=== PATIENT | female | born 1960 | race African-American/Black ===

== ENCOUNTER 2016-11-08 08:15 | Emergency (ER) | payer MEDICARE, MEDICAID ==
[~2016-11-08] VITALS: Ht 162.6 cm; Wt 95.0 kg
[~2016-11-08 08:15] MED LIST: HYDR-3513
[2016-11-08 08:28] VITALS: BP 177/90
[2016-11-08] MEDS ORDERED: DIPHENHYDRAMINE 50MG/ML VIAL IM ONE (10:45)
== END 2016-11-08 11:13 | disposition home or self-care (01) ==
LOC: ER 10:40
DX: R21 Rash and other nonspecific skin eruption (principal); L73.9 Follicular disorder, unspecified; Z88.0 Allergy status to penicillin; Z98.890 Other specified postprocedural states
CPT/HCPCS: 96372; 99283; J1200

== ENCOUNTER → 2020-11-24 | Day surgery (SDC) | payer MEDICARE ==
[~2020-11-24] VITALS: Ht 162.6 cm; Wt 86.2 kg
[~2020-11-24] MED LIST changes: +ACET-2708 PO; +ACET500C47 PO; +ALBU90AE IH; +BALANCED SALT IRRIG SOLN 15ML ONE; +BRIM10DR2 BOTHEYE; +BUPIVACAINE HCL/PF 0.75% (7.5MG/ML) 10ML ONE; +CIPROFLOXACIN 0.3% OPHTH SOLN 2.5ML ONE; +FENTANYL CITRATE/PF 50MCG/ML 2ML VIAL ONE; -HYDR-3513; +HYDR-4350 PO; +KETO5DRO80 BOTHEYE; +LACTATED RINGERS 1,000 ML IV SCH; +LATA2.5D14 BOTHEYE; +LIDOCAINE HCL 2%/EPINEPHRINE 1:100,000 20 ML VIAL INFIL ONE; +LIDOCAINE HCL/PF 1% 10 MG/ML 5ML VIAL ONE; +LIDOCAINE HCL/PF 2% 20 MG/ML 10ML VIAL ONE; +MIDAZOLAM HCL 2 MG/2 ML VIAL ONE; +NEO/POLYMYX B SULF/DEXAMETH OPHTH OINT 3.5GM ONE; +P20 PO; +PRED5DRO22 BOTHEYE; +PREDNISOLONE ACETATE 1% OPHTH DROPS 5ML ONE; +PROPOFOL 200MG/20ML VIAL IV ONE; +TETRACAINE 0.5% OPHTH DROPS 4ML ONE; +XALAO EACHEYE
== END | disposition home or self-care (01) ==
LOC: OR 05:08
PROVIDERS: ATTEND Ophthalmology
DX: T85.398A Other mechanical complication of other ocular prosthetic devices, implants and grafts, initial encounter (principal); E66.9 Obesity, unspecified; J44.9 Chronic obstructive pulmonary disease, unspecified; Z79.899 Other long term (current) drug therapy; Z88.0 Allergy status to penicillin; Z98.890 Other specified postprocedural states; X58.XXXA Exposure to other specified factors, initial encounter; Y93.89 Activity, other specified; Y92.89 Other specified places as the place of occurrence of the external cause; Y99.8 Other external cause status
CPT/HCPCS: 66185; 93005; J2250; J2704; J3010; J3490; C1762